=== PATIENT | female | born 1970 ===

== ENCOUNTER → 2017-10-23 | Day surgery (SDC) | payer OTHER ==
[~2017-10-23] MED LIST: CATAFLAN PO; CLARITIN10 M1 PO; FENOFIBRATE134 MG PO; HYZAAR 50-12.51 EACH PO; NAPROXEN SODIU550 M1 PO; OPTIMAL D350000 UNIT PO; PRILOSEC OTC20 MG PO; SYNTHROID125 MCG PO; ZANTAC150 M3 PO
== END | disposition home or self-care (01) ==
LOC: ADM 10-19 10:15 → CIR.AMB 05:45
DX: N84.1 Polyp of cervix uteri (principal)